=== PATIENT | male | born 1950 | race American Indian/Alaskan Native ===

== ENCOUNTER 2018-12-29 11:05 | Day surgery (SDC) | payer OTHER ==
[~2018-12-29 11:05] MED LIST: DIPRIVAN 10 MG/ML IV ONE
[2018-12-29] MEDS ORDERED: NACL 0.9% 1000 ML 1,000 ML IV SCH (12:00)
--- NOTE | 2018-12-29 12:41 | Discharge Summary ---
Short Stay Discharge Plan Activity: advance as tolerated Weight Bearing Status: Weight Bear as Tolerated Diet: regular Follow up with: [facility] [Primary Care Provider] - 7 Days
--- NOTE | 2018-12-29 12:41 | Operative Report ---
Operative Report Operative Report: Date of procedure: 12/29/2018 Procedure: Colonoscopy. Attending physician: Tre Burch MD Biometrics Analyst: Tre Burch MD Indication: Patient is a 68-year-old female who presents for colonoscopy for colorectal cancer screening. . A colonoscopy is now to evaluate patient so that treatment may be directed based on the findings. Consent: Informed consent was obtained after advising the patient and family regarding nature of this procedure, its indications, potential benefits as well as possible complications including but not limited to bleeding perforation and adverse reaction to medication, infection as well as other cardiopulmonary complications. An informed written and verbal consent was then obtained after due opportunity was provided for questions and answers. Monitoring: Patient was monitored continuously with pulse oximetry and electrocardiographic recordings as well as blood pressure recordings. Vital signs remained stable throughout this procedure with no untoward events. Preoperative assessment: Patient was assessed immediately prior to this procedure for capacity to tolerate monitored anesthesia care and moderate sedation as well as general anesthesia. Patient's ASA classification is 2, Mallampati class is 2, Hyomental distance is 3. Instrument: Olympus video colonoscope Medications: Propofol given intravenously in divided doses. For details please refer to anesthesia records. Description of procedure: Patient was placed in the left lateral decubitus position after achieving sedation, a digital rectal examination was performed following which the colonoscope was introduced into the anal verge and advanced to the cecum which was identified by the ileocecal valve, the appendiceal orifice, as well as by the cecal strap and direct transillumination. The colonoscope was subsequently withdrawn with careful inspection of all mucosal surfaces. Patient tolerated this procedure well and was subsequently taken to the recovery room. The following findings were noted. Findings: The patient had extensive diverticulosis of the sigmoid and descending colon. Patient had an area in the sigmoid colon with acute diverticulitis with significant mucosal edema and erythema and mucopurulent collections. The rest of the colon to the cecum was normal. On the retroflex view at the anal verge, patient had prominent internal hemorrhoids. . Impression: Acute Sigmoid diverticulitis. Extensive diverticular disease of the colon. Internal hemorrhoids. Plan: Treat acute diverticulitis with ciprofloxacin for 500 mg twice a day for 10 days as well as Flagyl 500 mg three times a day for 10 days. High fiber diet Repeat colonoscopy in 10 years. May benefit from hemorrhoid in the near future if patient is symptomatic from hemorrhoids.
[2018-12-29 13:19] VITALS: BP 150/90
[2018-12-29] MEDS ORDERED: XYLOCAINE MPF 2% ONE (15:00)
--- NOTE | 2018-12-29 18:22 | Anesthesia Day of Surgery ---
Anesthesia Day of Surgery - Day of Surgery Patient Examined: Yes Patient H&P Reviewed: Yes Patient is NPO: Yes Beta Blockers: No Cardiac Clearance: No Pulmonary Clearance: No Ian's Test: N/A
--- NOTE | 2018-12-29 18:23 | Anesthesia Consultation ---
Anesthesia Consult and Med Hx - Airway ROM Head & Neck: Adequate Mental/Hyoid Distance: Adequate Mallampati Class: Class II Intubation Access Assessment: Good - Pulmonary Exam CTA: Yes - Cardiac Exam Cardiac Exam: RRR - Pre-Operative Health Status ASA Pre-Surgery Classification: ASA2 - Pulmonary Hx Smoking: Yes - Cardiovascular System Hx Hypertension: Yes
--- NOTE | 2018-12-29 18:23 | Post Anesthesia Evaluation ---
- Post Anesthesia Evaluation Patient Participated: Yes Airway Patent: Yes Stable Respiratory Function: Yes Nausea/Vomiting: No Temp > 96.8F: Yes Pain Manageable: Yes Adequeate Hydration: Yes Anesthesia Complications: No Block Receding Appropriately: Not Applicable Patient on Ventilator: No
== END 2018-12-29 11:06 | disposition home or self-care (01) ==
LOC: GIO 11:05
PROVIDERS: ATTEND Internal Medicine Gastroenterology
DX: Z12.11 Encounter for screening for malignant neoplasm of colon (principal); K64.8 Other hemorrhoids; K57.30 Diverticulosis of large intestine without perforation or abscess without bleeding; K57.32 Diverticulitis of large intestine without perforation or abscess without bleeding; I10 Essential (primary) hypertension; Z87.891 Personal history of nicotine dependence; Z79.899 Other long term (current) drug therapy
CPT/HCPCS: 45378; J2704; J7030

== ENCOUNTER 2021-03-21 14:59 | Emergency (ER) | payer SELFPAY ==
--- NOTE | 2021-03-21 15:06 | Event Note ---
ED Screening Note ED Screening Note: Patient is a 70-year-old male presents emergency room with complaints of numbness to the left leg which he states initially began in the left big toe and radiated up his leg that began 4 hours [employer] He states he also feels like he is having difficulty pronouncing his words History of a stroke a year and a half ago and reports he had right-sided deficits at that time Patient is concerned for another stroke This initial assessment/diagnostic orders/clinical plan/treatment(s) is/are subject to change based on patients health status, clinical progression and re- assessment by fellow clinical providers in the ED. Further treatment and workup at subsequent clinical providers discretion. Patient/guardian urged not to elope from the ED as their condition may be serious if not clinically assessed and managed. Initial orders include: Dr. Nolen assessed patient and advised to order code stroke order set
[2021-03-21 15:29] VITALS: BP 169/88
[2021-03-21 15:34] LABS: Basophils % (Auto) 0.8 % (0.0-1.8); Eosinophils # (Auto) 0.2 K/mm3 (0.0-0.4); Eosinophils % (Auto) 4.8 % (0.0-4.3); Hematocrit 33.4 % (35.5-45.6); Hemoglobin 11.7 gm/dl (11.8-15.2); Lymphocytes # (Auto) 1.3 K/mm3 (1.2-5.4); Mean Corpuscular HGB Conc 35 % (32-34); Mean Corpuscular Volume 94 fl (84-94); Monocytes # (Auto) 0.3 K/mm3 (0.0-0.8); Monocytes % (Auto) 7.4 % (0.0-7.3); Platelet Count 201 K/mm3 (140-440); Red Blood Count 3.54 M/mm3 (3.65-5.03); Red Cell Distribution Width 13.9 % (13.2-15.2)
[2021-03-21 15:45] LABS: Partial Thromboplastin Time 28.9 Sec. (24.2-36.6)
--- NOTE | 2021-03-21 15:56 | Cat Scan Report ---
CT head/brain wo con INDICATION: Stroke symptoms. TECHNIQUE: Routine CT head. All CT scans at this location are performed using CT dose reduction for A KEVIN by means of automated exposure control. COMPARISON: CT Sep 30 6019 FINDINGS: Intracranial: Eric-white matter differentiation is maintained. No intracranial hemorrhage. No extra a xial collection. No hydrocephalus. No herniation. Remote left khan radiata infarction. Sinuses: Paranasal sinuses and mastoid air cells are essentially clear. Orbits: Globes are intact. Calvarium: No acute fracture. IMPRESSION: 1. No acute intracranial abnormality. Signer Name: Guero Jaramillo MD Signed: 03/21/2021 3:52 PM Workstation Name: [id number]
[2021-03-21 16:04] LABS: Alanine Aminotransferase 24 units/L (7-56); Albumin 3.8 g/dL (3.9-5); BUN/Creatinine Ratio 11; Blood Urea Nitrogen 15 mg/dL (9-20); Hemolysis Index 9
[2021-03-21 16:07] LABS: Creatine Kinase MB < 1.0 ng/mL (0.0-4.0)
--- NOTE | 2021-03-21 16:20 | Emergency Department Report ---
ED General Adult HPI - General Chief complaint: Neuro Symptoms/Deficit Stated complaint: STROKE SYMPTOMS Time Seen by Provider: 03/21/21 15:56 Source: patient Mode of arrival: Ambulatory Limitations: No Limitations - History of Present Illness Initial comments: Mr. Carty is a 70 years old male with history of CVA and right sided weakness last year. Patient also had history of hypertension. Patient presented to the ER stating that he started to have numbness in his great toe and he felt the scab was going up to his leg. Patient stated that he got panicky and worried that this might be another stroke so he wanted to come to the ER so he can fauzia cked it. Patient denied any weakness, no other numbness tingling sensation. Patient denied any speech difficulties. No visual disturbances. Patient also denied any ataxia. Patient stroke scale is 0. - Related Data Previous Rx's Medication Instructions Recorded Last Taken Type Aspirin EC [Ecotrin] 325 mg PO QDAY #30 tablet 10/30/19 Unknown Rx AtorvaSTATin [Lipitor] 40 mg PO QHS #30 tablet 10/30/19 Unknown Rx Famotidine [Pepcid] 10 mg PO BID #60 tablet 10/30/19 Unknown Rx Valsartan [Diovan] 80 mg PO BID #60 tablet 10/30/19 Unknown Rx amLODIPine 10 mg PO QDAY #30 tablet 10/30/19 Unknown Rx Allergies Allergy/AdvReac Type Severity Reaction Status Date / Time No Known Allergies Allergy Verified 12/29/18 11:22 ED Review of Systems ROS: Stated complaint: STROKE SYMPTOMS Other details as noted in HPI Comment: All other systems reviewed and negative Constitutional: denies: chills, fever Respiratory: denies: cough, shortness of breath, SOB with exertion, SOB at rest Cardiovascular: denies: chest pain, palpitations Gastrointestinal: denies: abdominal pain, nausea, vomiting Musculoskeletal: denies: back pain Neurological: numbness (Completely resolved now.). denies: headache, weakness, paresthesias, confusion, abnormal gait ED Past Medical Hx - Past Medical History Hx Hypertension: Yes Hx CVA: Yes - Social History Smoking Status: Never Smoker Substance Use Type: None - Medications Home Medications: Home Medications Medication Instructions Recorded Confirmed Last Taken Type Aspirin EC [Ecotrin] 325 mg PO QDAY #30 tablet 10/30/19 Unknown Rx AtorvaSTATin [Lipitor] 40 mg PO QHS #30 tablet 10/30/19 Unknown Rx Famotidine [Pepcid] 10 mg PO BID #60 tablet 10/30/19 Unknown Rx Valsartan [Diovan] 80 mg PO BID #60 tablet 10/30/19 Unknown Rx amLODIPine 10 mg PO QDAY #30 tablet 10/30/19 Unknown Rx ED Physical Exam - General Limitations: No Limitations General appearance: alert, in no apparent distress - Head Head exam: Present: atraumatic, normocephalic, normal inspection - Eye Eye exam: Present: normal appearance, PERRL - ENT ENT exam: Present: normal exam, normal orophraynx, mucous membranes moist - Neck Neck exam: Present: normal inspection, full ROM. Absent: tenderness, meningismus - Respiratory Respiratory exam: Present: normal lung sounds bilaterally - Cardiovascular Cardiovascular Exam: Present: regular rate, normal rhythm, normal heart sounds - GI/Abdominal GI/Abdominal exam: Present: soft, normal bowel sounds. Absent: distended, tenderness, guarding, rebound, rigid, organomegaly, mass, bruit, pulsatile mass, hernia - Extremities Exam Extremities exam: Present: normal inspection, full ROM, normal capillary refill. Absent: tenderness, pedal edema, joint swelling, calf tenderness - Back Exam Back exam: Present: normal inspection, full ROM. Absent: CVA tenderness (R), CVA tenderness (L) - Neurological Exam Neurological exam: Present: alert, oriented X3, CN II-XII intact, normal gait, reflexes normal. Absent: motor sensory deficit - Psychiatric Psychiatric exam: Present: normal mood - Skin Skin exam: Present: warm, intact, normal color ED Course Vital Signs 03/21/21 03/21/21 15:04 15:28 Temperature 97.8 F 98 F Pulse Rate 72 84 Respiratory 16 16 Rate Blood Pressure 149/77 169/88 [Right] O2 Sat by Pulse 98 99 Oximetry ED Medical Decision Making - Lab Data Result diagrams: 03/21/21 15:09 03/21/21 15:09 - Radiology Data Radiology results: report reviewed - Medical Decision Making Mr. Caryt is a 70 years old male with history of CVA and right sided weakness last year. Patient also had history of hypertension. Patient presented to the ER stating that he started to have numbness in his great toe and he felt the scab was going up to his leg. Patient stated that he got panicky and worried that this might be another stroke so he wanted to come to the ER so he can checked it. Patient denied any weakness, no other numbness tingling sensation. Patient denied any speech difficulties. No visual disturbances. Patient also denied any ataxia. Patient stroke scale is 0. CT brain is negative for acute finding. Labs reviewed and is unremarkable. Patient remained asymptomatic in the ER. I do not think this is TIA or strokes since patient stroke scale remains 0. Patient again acknowledged that he was just worried that he might have another stroke. Patient advised to return to the ER if he develop any new symptoms otherwise patient advised to follow-up with his primary doctor in the next 2 to 3 days. Critical care attestation.: If time is entered above; I have spent that time in minutes in the direct care of this critically ill patient, excluding procedure time. ED Disposition Clinical Impression: Numbness Disposition: 01 HOME / SELF CARE / HOMELESS Is pt being admited?: No Condition: Stable Instructions: Paresthesia Referrals: PRIMARY [facility] [Referring] - 3-5 Days
== END 2021-03-21 17:44 | disposition home or self-care (01) ==
LOC: ED 14:59
DX: R20.0 Anesthesia of skin (principal)
CPT/HCPCS: 36415; 70450; 80053; 82550; 82553; 84484; 85025; 85610; 85670; 85730; 99284